=== PATIENT | female | born 1990 | race Caucasian/White ===

== ENCOUNTER 2020-10-30 10:44 | Emergency (ER) | payer OTHER ==
[~2020-10-30] VITALS: Ht 162.6 cm; Wt 63.5 kg
[~2020-10-30 10:44] MED LIST: PREDNISONE20 MG PO; TUSSIONEX PENNKI5 ML PO
[2020-10-30] MEDS ORDERED: DICLOFENAC POTA50 MG PO (15:22)
== END 2020-10-30 15:48 | disposition home or self-care (01) ==
LOC: ER 10:44
DX: N83.292 Other ovarian cyst, left side (principal); N93.8 Other specified abnormal uterine and vaginal bleeding

== ENCOUNTER 2022-07-09 10:21 | Emergency (ER) | payer OTHER ==
[~2022-07-09] VITALS: Ht 162.6 cm; Wt 63.5 kg
[~2022-07-09 10:21] MED LIST changes: +DICLOFENAC POTA50 MG PO
== END 2022-07-09 13:11 | disposition home or self-care (01) ==
LOC: ER 10:21
DX: R05.9 Cough, unspecified (principal); J45.909 Unspecified asthma, uncomplicated; Z91.041 Radiographic dye allergy status; Z91.013 Allergy to seafood

== ENCOUNTER → 2025-04-16 | Day surgery (SDC) | payer OTHER ==
[2025-03-26 09:17] LABS: URINE APPEARANCE Clear; URINE BILIRRUBIN Negative (NEGATIVE); URINE BLOOD Negative; URINE COLOR Yellow; URINE GLUCOSE Negative (NEGATIVE); URINE KETONE Negative (NEGATIVE); URINE LEUKOCYTE Negative; URINE NITRATE Negative; URINE PROTEIN Negative (NEGATIVE); URINE UROBILINOGEN 0.2 E.U./dl
[2025-03-26 09:21] LABS: URINE BACTERIA 141.5 uL (0.0-1933); URINE EPITHELIAL CELLS 7.2 uL (0.0-38.8); URINE RBC 4.9 uL (0.0-20.8); URINE WBC 5.2 uL (0.0-23.2)
[2025-03-26 09:35] LABS: URINE CAST 0.14 uL (0.0-1.40)
[2025-03-26 09:41] VITALS: BP 137/85
[2025-03-26 09:48] LABS: BASO % 0.8 % (0.1-1.2); EOS # 0.32 (0.04-0.54); EOS % 6.1 % (0.7-7.0); LYMPH # 1.62 (1.18-3.74); LYMPH % 30.7 % (19.3-53.1); MEAN PLATELET VOLUME 10.70 fl (9.4-12.4); MONO # 0.29 (0.24-0.82); MONO % 5.5 % (4.7-12.5); NEUT # 3.00 (1.56-6.13); NEUT % 56.7 % (34.0-71.1); RED CELL DISTRIBUTION WIDTH 12.0 % (11.6-14.4)
[2025-03-26 10:09] LABS: INR 1.01
[2025-03-26 10:28] LABS: ALT/SGPT 18 U/L (12-78); AST/SGOT 11 U/L (15-37); BILIRUBIN TOTAL 0.45 mg/dL (0.3-1.2); BUN CREA RATIO 17 (7.0-25.0); CREATININE SERUM 0.76 mg/dL (0.55-1.02); GFR 86.60; GLOBULINA 3.8 G/DL (2.4-3.5); GLUCOSE FASTING 90 mg/dL (65-100); OSMOLALITY SERUM 281 MOSM/KG (275-295)
[2025-03-26 10:29] LABS: HCG QUANTITATIVE < 1 mUI/mL (1-3)
[~2025-04-16] VITALS: Ht 162.6 cm; Wt 70.3 kg
[~2025-04-16] MED LIST changes: +BUPIVACAINE HCL/MPF 0.5% 30ML VIAL ONE; +CEFAZOLIN SODIUM 1,000 MG VIAL ONE; +CHLORHEXIDINE GLUCONATE 120 ML BOTTLE TOP ONE; +FYAVOLV 0.5 MG1 EACH PO; +KETOROLAC TROMETHAMINE 30 MG VIAL IV NR; +METHYLENE BLUE 50MG/10ML AMP IV ONE; +SUGAMMADEX SODIUM 200 MG/2 ML VIAL IV ONE; +THROMBIN,HU/FIBRINOGEN/CALCIUM 10 ML SYRINGE TOP ONE; +VASOPRESSIN 20 UNITS/ML VIAL ONE; +VISTASEAL DUAL APPICATOR 1 EACH APPL TOP ONE
== END | disposition home or self-care (01) ==
LOC: EDSTATUS 04-02 07:45 → OB/GYN 04-02 07:45 → O/R 06:00 → OB/GYN 12:29 → O/R 12:29 → CIR.AMB 12:35 → O/R 14:18 → OB/GYN 14:18 → O/R 15:40
PROVIDERS: ATTEND Student in an Organized Health Care Education/Training Program
DX: N80.33 Superficial endometriosis of the pelvic sidewall (principal); N80.3A1 Superficial endometriosis of the right uterosacral ligament; N80.321 Superficial endometriosis of the posterior cul-de-sac; N80.113 Superficial endometriosis of bilateral ovaries; N84.0 Polyp of corpus uteri; N80.03 Adenomyosis of the uterus; N93.8 Other specified abnormal uterine and vaginal bleeding; Z91.041 Radiographic dye allergy status; Z91.013 Allergy to seafood; N28.89 Other specified disorders of kidney and ureter